=== PATIENT | female | born 2000 | race Caucasian/White ===

== ENCOUNTER 2025-01-11 14:55 | Emergency (ER) | payer BC, SELFPAY ==
[2025-01-11 14:57] VITALS: BP 139/76; PULSE 78; RESP 16; TEMP 36.4; O2SAT 99; BMI 36.0
--- OUTSIDE RECORDS SUMMARY | 2025-01-11 14:57 | XMS_ITS | Clinical Summary ---
Author Organization [facility] Address [address] , [address] [place] [address] Phone Care Team Providers Care Whiskey Regauger Name Role Phone Chantal Chatterjee PsyD Unavailable [phone] Conditions or Problems Problem Name Problem Code Onset Date Status Entry Date Provider Comment Standard Description Annotate Depression with anxiety 264929436 (SNOMED CT) Active Chantal Chatterjee PsyD Mixed anxiety and depressive disorder Confusion 95958042 (SNOMED CT) Active Chong Henning MD Clouded consciousness Memory loss 34065625 (SNOMED CT) Active Chong Henning MD Amnesia Medications Medication Instructions Start Date Stop Date Generic Name [facility] Provider RISPERDAL CONSTA 25 MG SRER risperidone microspheres [id number] Chong Henning MD RISPERIDONE 4 MG TABS TAKE 1 TABLET BY MOUTH EVERY DAY risperidone [id number] Chong Henning MD RISPERIDONE 2 MG TABS risperidone [id number] Chong Henning MD Medications Administered No information available. Allergies, Adverse Reactions, Alerts Allergy Name Reaction Description Start Date Severity Statu s Provider NO KNOWN DRUG ALLERGIES Mild Activ e Chong Henning MD Results Date Name Value Unit Range Flag Description Office Visit: Office Visit m ail SMOK STATUS former smoker Tobacco smoking status MEDS REVIEW Done Documenta tion of current medications (procedure) Internal Other: Verbal Autho rization/Emergency Contact - OBS VERBAL_EMER DONE Verbal authorization and emergency contact Internal Other: Authorizatio n - OBS [id number] Yes GE use only - for LinkLogic import when terms are not otherwise specified HIECONSENT Yes Consent To Release information to the Health Information Exchange (HIE) Lab Report: T4, FREE, TSH, V ITAMIN B12 B-12 457 pg/mL 200-1100 N Cobalamin (V itamin B12) [Mass/volume] in Serum or Plasma TSH 1.13 u[iU]/mL N Thyrotropin [Units/volume] in Serum or Plasma FRT4 1.2 0.8-1.8 N FREE T4 Plan of Care Type Date Detail Pending order Telemedicine Fol low up Pending order Telemedicine Fol low up Pending order MRI-Brain W/O Pending order T4 Free Direct Pending order TSH Pending order Vitamin B12 Pending order Neuropsychology Evaluation Pending order Patient Instruct ions Procedures Code Procedure Name Date Entry Date [id number] MRI-Brain W/O ORDERS Vitamin B12 ORDERS TSH ORDERS T4 Free Direct CPT-74909 MRI Brain W/O CPT-40924 Npsy Interview w/Provider - 1st hour 2021 CPT-02294 Npsy Interp/Rpt by Provider - 1st hour 23/12/07 CPT-35922 Npsy Interp/Rpt by Provider - 4 hours 12/03/07 CPT-49415 Npsy Test by Tech (2+ Tests) - 1st 30 min CPT-00008 Npsy Test by Tech (2+ Tests) - 2 hours 23/12/07 ORDERS Neuropsychology Evaluation 2 [facility]-[id number] Documentation of current medicatio ns ORDERS Patient Instructions Vital Signs No information available. Immunizations No information available. Advance Directives No information available.
--- OUTSIDE RECORDS SUMMARY | 2025-01-11 14:57 | XMS_ITS | Continuity of Care Document ---
Author Organization [facility] Address [address] [place] [address] Phone Care Team Providers Care Pathology Laboratory Aide Name Role Phone Laurent Mtz PA-C Unavailable Unavailable Allergies, Adverse Reactions, Alerts Substance Reaction Status Criticality No Known Allergies Active No Inform ation Medications Medication Instructions Dosage Effective Dates (start - stop) Status Comments olanzapine 10 mg tablet take 1 tablet by oral route every day 10 MG - Active sertraline 50 mg tablet take 1 tablet by oral route every day 50 MG - Active haloperidol 10 mg tablet take 1 tablet by oral route 2 times every day 10 MG - Active ibuprofen 600 mg tablet take 1 tablet by oral route 3 times every day with food 600 MG - Active Procedures Procedure Date OFFICE/OUTPATIENT VISIT EST OFFICE/OUTPATIENT VISIT EST Pneumati walking boot prefab OFFICE/OUTPATIENT VISIT NEW Advance Directives Directive Yes / No Effective Date File Name No Information Encounters Encounter Description Practice Location Reason(s) For Visit Diagnoses Date Provider Providers Copied on Encounter [facility] , [address], [place], [place], [id number], [place] tel:[phone] [facility] No Information Smith Mancilla. [address], [place], [place], [id number] , [place]. tel:[phone] OFFICE/OUTPA TIENT VISIT EST [facility] , [address], [place], [place], [id number], tel:[phone] [facility] Nondisplaced fracture of lateral malleolus of left fibula, subsequent encounter for closed fracture with routine healing 4 Smith Mancilla. [address], [place], [place], [id number] , [place]. tel: [phone] Referring Provider: Jesus Gonzalez III, [facility] [place], [address]. tel:[phone] OFFICE/OUTPA TIENT VISIT EST [facility] , [address], [place], [place], [id number], tel:[phone] [facility] Nondisplaced fracture of lateral malleolus of left fibula, subsequent encounter for closed fracture with routine healingOverweightB noble mass index [BMI] 36.0-36.9, adult 4 Smith Mancilla. [address], [place], [place], [id number] , [place]. tel: [phone] Referring Provider: Jesus Gonzalez III, [facility] [place], [address]. tel:[phone] OFFICE/OUTPA TIENT VISIT [facility] , [address], [place], [place], [address], tel:[phone] [facility] Closed nondisplaced fracture of lateral malleolus of left fibula, initial encounter 3 Smith Mancilla. [address], [place], [place], [id number] , [place]. tel: [phone] Family History Family Member Type Diagnosis Age At Onset No Information Payers Payer name Insurance type Covered constitution party ID January baig(s) [facility] CI [id number] Social History Type Description Quantity Date Captured Comments Alcohol Use Details Unknown Caffeine Use Details Unknown Tobacco Use Status No Information Smoking Status No Information Sex Female Chief Complaint And Reason For Visit No Information Plan Of Treatment Date Type Action Status Referral Ordered: ANKLE L/R 3/4 VWS LT ankle ordered History Of Present Illness Encounter Date Complaint History Of Prese nt Illness No Information Instructions Date Instruction Additional Infor mation No Information Assessments Type Assessment Date No Information
--- OUTSIDE RECORDS SUMMARY | 2025-01-11 14:57 | XMS_ITS | Clinical Summary ---
Author Organization [facility] Address [address] [place] [address] Care Team Providers Care [place] Name Role Phone Pcp, No Primary Care Provider Unavailabl e Allergies No known active allergies Medications hydrocortisone 2.5 % creamIndication s:Dermatitis Apply topically to affected area(s) two times daily. 30 g 5 Active white petrolatum-mine ral oiL (DERMACERIN) creamIndication s:Dermatitis,Dr jimmy skin Apply topically to affected area(s) once daily if needed for Dry Skin. 107 g 5 Active Active Problems Problem Noted Date Diagnosed Date Dermatitis 12/29/2024 Psychosis 09/11/2021 Obesity, unspecified 05/30/2008 Encounters Date Type Department Care Team Description 01/01/2025 Telephone [facility] [address] [place] [address] Rashid Henderson MD Results 12/29/2024 8:20 AM CIRCUS LABORER Office Visit [facility] [address] [place] [address] Rashid Henderson MD Throat Problem (sore throat- going on a bout 3 weeks ); Nose Problem 12/29/2024 Telephone [facility] [address] [place] [address] Rashid Henderson MD Results 12/29/2024 Travel 11/24/2024 3:20 PM CIRCUS LABORER Office Visit [facility] [address] [address] Radha Matute PA Abdominal Pain 11/24/2024 Travel from Last 3 Months Immunizations Immunization Administration Dates Next Due COVID-19 vaccine (3 Four 5 Group-Bio NTech 30mcg/0.3mL) PF, MDV 10/29/2021 DTaP 06/25/2003, 9,1998,06/27,1998 HIB-HepB (Comvax) 02/21/1999,1998,04/15/19 98 HPV 9 (Gardasil 9) 07/29/2018,09/29/2017, 017 Hepatitis A (Peds) 12/25/2009,05/30/2008 Inactivated Polio Vaccine 06/25/2003,1998, 1998 Influenza, IIV4 10/29/2021,,07/29/2018,07/22 MENINGOCOCCAL VACCINE 2 VIAL 2MO-55YO (MENVEO) 07/22/2017 MMR 06/25/2003,02/21/1999 Oral Polio Vaccine 02/21/1999 Tdap 12/25/2009 Varicella Vaccine 05/30/2008,02/21/1999 Family History Medical History Relation Name Comments Diabetes Maternal Grandmother Good Health Mother Asthma No Family History Cancer-breast No Family History Cancer-colon No Family History Heart Disease No Family History Hyperlipidemia No Family History Relation Name Status Comments Maternal Grandmother Mother Social History Tobacco Use Types Packs/Day Years Used Date Smoking Tobacco: Never Smokeless Tobacco: Never Tobacco Cessation:Counseling Given: Yes Alcohol Use Standard Drinks/Week Comments Not Currently 0 (1 standard drink = 0.6 oz pur e alcohol) PHQ-2 Answer Date Recorded PHQ-2 TOTAL SCORE 0 09/11/2021 Social Connections Answer Date Recorded Do you often feel lonely or isolated from those around you? 0 12/29/2024 Financial Resource Strain Answer Date R ecorded Difficulty of Paying Living Expenses 2 12/29/2024 Difficulty of Paying Living Expenses 1 12/29/2024 Food Insecurity Answer Date Recorded Do you worry your food will run out before you are able to buy more? 2 12/29/2024 Transportation Needs Answer Date Record ed Does lack of transportation keep you from medica l appointments? 2 12/29/2024 Does lack of transportation keep you from work, meetings or getting things that you need? 1 12/29/2024 Housing Stability Answer Date Recorded What is your housing situation today? 1 12/29/2024 Utilities Answer Date Recorded Do you have trouble paying f or utilities (for example, heat, electricity, water, phone)? 2 12/29/2024 Comments No Sex and Gender Information Value Date Recorded Sex Assigned at Not on file Legal Sex Female 5:46 AM CIRCUS LABORER Gender Identity Not on file Sexual Orientation Not on file Occupation Industry Job Start Date Job End Date Student Not on file Not on file Not on file [employer] Not on file Not on file Not on file Obstetrics History Para Term AB IAB SAB Ectopic Multiple Livin g Live Births 0 0 0 0 0 0 0 0 0 0 0 Last Filed Vital Signs Vital Sign Reading Time Taken Comments Blood Pressure 135/84 12/29/2024 8:13 AM CIRCUS LABORER Pulse 96 12/29/2024 8:13 AM CIRCUS LABORER Temperature 36.5 C (97.7 F) 11/24/2024 3:33 PM CIRCUS LABORER Respiratory Rate - - Oxygen Saturation 96% 12/29/2024 8:13 AM CIRCUS LABORER Inhaled Oxygen Concentration - - Weight 95.3 kg (210 lb) 12/29/2024 8:13 AM CIRCUS LABORER Height 158.8 cm (5' 2.5) 09/11/2021 2:18 PM CIRCUS LABORER Body Mass Index 37.8 09/11/2021 2:18 PM CIRCUS LABORER Plan of Treatment Health Maintenance Due Date Last Done Comments HIV for age 15-65 2013 Hepatitis C screening for age 18-79 02/13/2016 Tetanus booster 12/25/2019 12/25/2009 BMI (ht and wt on same day) for age 18+ 09/11/2022 09/11/2021, 07/29/2018, 11/24/2017, Additional history exists Depression screening for age 12+ 09/11/2022 09/11/2021, 08/01/2018, 07/29/2018, Additional history exists COVID-19 vaccine series ( season) 2024 10/29/2021 Influenza Vaccine (#1) 2024 , 09/11/2021, 07/29/2018, Additional history exists Pap test for age 21-65 09/11/2024 09/11/2021 Tdap Completed 12/25/2009 HPV series for age 9-26 Completed 07/29/20 18, 09/29/2017, 07/22/2017 Pneumococcal series for age 6-49 Aged Out No longer eligible based on patient's age to complete this topic Procedures Procedure Name Priority Date/Time Associated Diagnosis Comments INFLUENZA A/B PCR Routine 12/29/2024 9:0 1 AM CIRCUS LABORER Sore throat COVID-19 MOLECULAR Routine 12/29/2024 9: 01 AM CIRCUS LABORER Sore throat THROAT RAPID STREP ONLY CLINIC Routine 12/29/2024 9:00 AM CIRCUS LABORER Sore throat HOOP COILER THIN PREP PAP SCREEN IMAGED Routine 09/11/2021 3:10 PM CIRCUS LABORER Cervical cancer screening from Last 3 Months or Most Recently Relevant to Health Maintenance Results * COVID-19 MOLECULAR (12/29/2024 9:01 AM CIRCUS LABORER) COVID 19 [facility] MOLECULAR Negative Negative 12/29/2024 6:55 PM CIRCUS LABORER [facility] LAB[facility]-CE NTRAL LABORATORY TESTING LABORATORY [facility] 12/29/2024 6:55 PM CIRCUS LABORER [facility] N[facility]AL LABORATORY Comment:Specimen submitted t o [facility] for testing. Other SPECIMEN FROM NASAL FOSSAE / Unknown Non-Blood / Unknown 12/29/2024 9:01 AM CIRCUS LABORER 12/29/2024 9:01 AM CIRCUS LABORER Narrative [facility] - 12/29/2024 6:55 PM CIRCUS LABORER All PCR tests are subject to false negative result due to variability in viral load and collection technique. A negative result does not rule out a SARS-CoV-2 infection. Clinical correlation required. Rashid Henderson MD MICROBIOLOGY Final Result [facility]CENTRAL LABORATORY [address] [place] [address], * INFLUENZA A/B PCR (12/29/2024 9:01 AM CIRCUS LABORER) [facility] INFLUENZA A PCR Negative 12/29/2024 6:55 PM CIRCUS LABORER [facility] TRAL LABORATORY INFLUENZA B PCR Negative 12/29/2024 6:55 PM CIRCUS LABORER [facility] TRAL LABORATORY Other SPECIMEN FROM NASAL FOSSAE / Unknown Non-Blood / Unknown 12/29/2024 9:01 AM CIRCUS LABORER 12/29/2024 9:01 AM CIRCUS LABORER Rashid Henderson MD MICROBIOLOGY Final Result [facility] [address] [place] [address], [place] * THROAT RAPID STREP ONLY CLINIC (12/29/2024 9:00 AM CIRCUS LABORER) [facility] POC, GROUP A STREP NOT DETECTED NOT DETECTED [facility] Comment: The [place] [employer] recommends that a throat culture be performed if a rapid group A streptococcus assay yields a negative result. [employer] recommends Streptococcus, Group A culture. Throat SPECIMEN FROM THROAT / Unknown 12/29/2024 9:00 AM CIRCUS LABORER 12/29/2024 9:00 AM CIRCUS LABORER Rashid Henderson MD MICROBIOLOGY Final Result Performing Organization Address City/[facility]/ZIP Co de Phone Number [facility] [address] [place] [address], [facility] [address] [place] [address] * HOOP COILER THIN PREP PAP SCREEN IMAGED (09/11/2021 3:10 PM CIRCUS LABORER) [facility] Case Report Gynecologic Cytology Report Case: [id number] Authorizing Provider: Marlene Lr DO Collected: 09/11/2021 1510 Ordering Location: [facility] Received: 09/11/2021 1548 Clinic First Screen: Niya Rocha Specimen: HOOP COILER ThinPrep Vial Screening, Cervical 09/26/2021 6:08 PM CIRCUS LABORER [facility] ENTRAL LABORATORY INTERPRETATION/ RESULT NEGATIVE FOR INTRAEPITHELIAL LESION OR MALIGNANCY (NIL) (none) 09/26/2021 6:08 PM CIRCUS LABORER [facility] ENTRAL LABORATORY IMEN ADEQUACY Satisfactory for evaluation Endocervical component present 09/26/2021 6:08 PM CIRCUS LABORER [facility] ENTRAL LABORATORY HPV REQUEST HPV if ASCUS 09/26/2021 6:08 PM CIRCUS LABORER [facility] ENTRAL LABORATORY Date of LMP 09/02/2021 09/26/2021 6:08 PM CIRCUS LABORER [facility] ENTRAL LABORATORY Last Pap Date unknown 09/26/2021 6:08 PM CIRCUS LABORER [facility] ENTRAL LABORATORY Last Pap Result NIL 6:08 PM CIRCUS LABORER [facility] ENTRAL LABORATORY Abnormal Pap or [place] Bx in last 5 years No 09/26/2021 6:08 PM CIRCUS LABORER [facility] ENTRAL LABORATORY Menstrual Status Regular Periods 09/26/2021 6:08 PM CIRCUS LABORER [facility] ENTRAL LABORATORY [place] Bx Done Today No 09/26/2021 6:08 PM CIRCUS LABORER [facility] ENTRAL LABORATORY Additional Information None given 09/26/2021 6:08 PM CIRCUS LABORER [facility] ENTRAL LABORATORY Comment: Cytology is screened at [facility], Central Laboratory - [address], [place] [address] and [facility] - [address], [place] [address] and [facility] - [address] [place] [address] Interpreted at [facility], Central Laboratory - [address], [place] [address] Automated Review Successful 09/26/2021 6:08 PM CIRCUS LABORER [facility] ENTRAL LABORATORY Comment:Specimen processed s uccessfully by automated construction analyst device, ThinPrep Imaging System, [employer] Note The pap test is a screening technique, not a diagnostic procedure. It is used primarily to screen for squamous cancers and precursor lesions. Published studies have shown that it is subject to both false negative and false positive results. The pap test should not be used as the sole means to diagnose or exclude pre-malignant and malignant lesions. 09/26/2021 6:08 PM CIRCUS LABORER [facility] ENTRAL LABORATORY Other (Cervical) Non-Blood / Unknown 09/11/2021 3:10 PM CIRCUS LABORER 09/11/2021 3:48 PM CIRCUS LABORER us Marlene Lr DO PATHOLOGY/CYTOLOGY Final R esult [facility] [address] [place] [address], [place] from Last 3 Months or Most Recently Relevant to Health Maintenance Insurance [facility] [employer] Care Teams [place] Relationship Specialty Start Date End Date Pcp, No . PCP - General 07/21/21
[2025-01-11 15:29] LABS: Ur HCG Qualitative* Negative (Negative)
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
--- OUTSIDE RECORDS SUMMARY | 2025-01-11 16:27 | XMS_ITS | Clinical Summary ---
Author Organization [facility] Address [address] [place] [address] Care Team Providers Care Advertising Account Manager Name Role Phone Pcp, No Primary Care [...] Type Department Care Team Description 01/01/2025 Telephone [facility] [address] [place] [address] Rashid Henderson MD Results 12/29/2024 8:20 AM DIFFERENTIAL TESTER Office Visit [facility] [address] [place] [address] Rashid Henderson MD Throat Problem (sore throat- going on a bout 3 weeks ); Nose Problem 12/29/2024 Telephone [facility] [address] [place] [address] Rashid Henderson MD Results 12/29/2024 Travel 11/24/2024 3:20 PM DIFFERENTIAL TESTER Office Visit [facility] [address] [address] Radha Matute PA Abdominal Pain 11/24/2024 Travel from Last 3 Months Immunizations Immunization Administration Dates Next Due COVID-19 vaccine ([employer] 30mcg/0.3mL) PF, MDV 10/29/2021 DTaP 06/25/2003, [...] on file Legal Sex Female 5:46 AM DIFFERENTIAL TESTER Gender Identity Not on file Sexual Orientation [...] Comments Blood Pressure 135/84 12/29/2024 8:13 AM DIFFERENTIAL TESTER Pulse 96 12/29/2024 8:13 AM DIFFERENTIAL TESTER Temperature 36.5 C (97.7 F) 11/24/2024 3:33 PM DIFFERENTIAL TESTER Respiratory Rate - - Oxygen Saturation 96% 12/29/2024 8:13 AM DIFFERENTIAL TESTER Inhaled Oxygen Concentration - - Weight 95.3 kg (210 lb) 12/29/2024 8:13 AM DIFFERENTIAL TESTER Height 158.8 cm (5' 2.5) 09/11/2021 2:18 PM DIFFERENTIAL TESTER Body Mass Index 37.8 09/11/2021 2:18 PM DIFFERENTIAL TESTER Plan of Treatment Health Maintenance Due Date [...] A/B PCR Routine 12/29/2024 9:0 1 AM DIFFERENTIAL TESTER Sore throat COVID-19 MOLECULAR Routine 12/29/2024 9: 01 AM DIFFERENTIAL TESTER Sore throat THROAT RAPID STREP ONLY CLINIC Routine 12/29/2024 9:00 AM DIFFERENTIAL TESTER Sore throat FISH HEADER THIN PREP PAP SCREEN IMAGED Routine 09/11/2021 3:10 PM DIFFERENTIAL TESTER Cervical cancer screening from Last 3 Months or Most Recently Relevant to Health Maintenance Results * COVID-19 MOLECULAR (12/29/2024 9:01 AM DIFFERENTIAL TESTER) COVID 19 [facility]LE[facility] Negative Negative 12/29/2024 6:55 PM DIFFERENTIAL TESTER [facility] [employer] [facility]-CE NTRAL LABORATORY TESTING LABORATORY [facility] 12/29/2024 6:55 PM DIFFERENTIAL TESTER [facility]OR[facility]- NTRAL LABORATORY Comment:Specimen submitted t o [facility] for testing. Other SPECIMEN FROM NASAL FOSSAE / Unknown Non-Blood / Unknown 12/29/2024 9:01 AM DIFFERENTIAL TESTER 12/29/2024 9:01 AM DIFFERENTIAL TESTER Narrative [facility]-CENTRAL LABORATORY - 12/29/2024 6:55 PM DIFFERENTIAL TESTER All PCR tests are subject to false negative result due to variability in viral load and collection technique. A negative result does not rule out a SARS-CoV-2 infection. Clinical correlation required. Rashid Henderson MD MICROBIOLOGY Final Result [facility]TR[facility] [address] [place] [address], * INFLUENZA A/B PCR (12/29/2024 9:01 AM DIFFERENTIAL TESTER) [facility] INFLUENZA A PCR Negative 12/29/2024 6:55 PM DIFFERENTIAL TESTER [facility] TRAL LABORATORY INFLUENZA B PCR Negative 12/29/2024 6:55 PM DIFFERENTIAL TESTER [facility] TRAL LABORATORY Other SPECIMEN FROM NASAL FOSSAE / Unknown Non-Blood / Unknown 12/29/2024 9:01 AM DIFFERENTIAL TESTER 12/29/2024 9:01 AM DIFFERENTIAL TESTER Rashid Henderson MD MICROBIOLOGY Final Result [facility] [address] [place] [address], [place] * THROAT RAPID STREP ONLY CLINIC (12/29/2024 9:00 AM DIFFERENTIAL TESTER) [facility] POC, GROUP A STREP NOT DETECTED NOT DETECTED [facility] Comment: The [place] [employer] recommends that a throat culture be performed if a rapid group A streptococcus assay yields a negative result. [employer] recommends Streptococcus, Group A culture. Throat SPECIMEN FROM THROAT / Unknown 12/29/2024 9:00 AM DIFFERENTIAL TESTER 12/29/2024 9:00 AM DIFFERENTIAL TESTER Rashid Henderson MD MICROBIOLOGY Final Result Performing Organization Address City/[facility]/ZIP Co de Phone Number [facility] [address] [place] [address], [facility] [address] [place] [address] * FISH HEADER THIN PREP PAP SCREEN IMAGED (09/11/2021 3:10 PM DIFFERENTIAL TESTER) [facility] Case Report Gynecologic Cytology Report Case: [id number] Authorizing Provider: Marlene Lr DO Collected: 09/11/2021 1510 Ordering Location: [facility] Received: 09/11/2021 1548 Clinic First Screen: Niya Rocha Specimen: FISH HEADER ThinPrep Vial Screening, Cervical 09/26/2021 6:08 PM DIFFERENTIAL TESTER [facility] [employer] [facility] ENTRAL LABORATORY INTERPRETATION/ RESULT NEGATIVE FOR INTRAEPITHELIAL LESION OR MALIGNANCY (NIL) (none) 09/26/2021 6:08 PM DIFFERENTIAL TESTER [facility] ENTRAL LABORATORY IMEN ADEQUACY Satisfactory for evaluation Endocervical component present 09/26/2021 6:08 PM DIFFERENTIAL TESTER [facility] ENTRAL LABORATORY HPV REQUEST HPV if ASCUS 09/26/2021 6:08 PM DIFFERENTIAL TESTER [facility] [employer] [facility] ENTRAL LABORATORY Date of LMP 09/02/2021 09/26/2021 6:08 PM DIFFERENTIAL TESTER [facility] [employer] [facility] ENTRAL LABORATORY Last Pap Date unknown 09/26/2021 6:08 PM DIFFERENTIAL TESTER [facility] ENTRAL LABORATORY Last Pap Result NIL 6:08 PM DIFFERENTIAL TESTER [facility] [employer] [facility] ENTRAL LABORATORY Abnormal Pap or Hull Bx in last 5 years No 09/26/2021 6:08 PM DIFFERENTIAL TESTER [facility] ENTRAL LABORATORY Menstrual Status Regular Periods 09/26/2021 6:08 PM DIFFERENTIAL TESTER [facility] ENTRAL LABORATORY Hull Bx Done Today No 09/26/2021 6:08 PM DIFFERENTIAL TESTER [facility] ENTRAL LABORATORY Additional Information None given 09/26/2021 6:08 PM DIFFERENTIAL TESTER [facility] ENTRAL LABORATORY Comment: Cytology is screened at [facility], Central Laboratory - [address], [place] [address] and [facility] - [address], [place] [address] and [facility] - [address] [place] [address] Interpreted at [facility], Central Laboratory - [address], [place] [address] Automated Review Successful 09/26/2021 6:08 PM DIFFERENTIAL TESTER [facility] ENTRAL LABORATORY Comment:Specimen processed s uccessfully by automated compugraph operator device, ThinPrep Imaging System, [employer] Note The pap test is a screening technique, not a diagnostic procedure. It is used primarily to screen for squamous cancers and precursor lesions. Published studies have shown that it is subject to both false negative and false positive results. The pap test should not be used as the sole means to diagnose or exclude pre-malignant and malignant lesions. 09/26/2021 6:08 PM DIFFERENTIAL TESTER [facility] LABORAT[facility]-C ENTRAL LABORATORY Other (Cervical) Non-Blood / Unknown 09/11/2021 3:10 PM DIFFERENTIAL TESTER 09/11/2021 3:48 PM DIFFERENTIAL TESTER us Marlene Lr DO PATHOLOGY/CYTOLOGY Final R esult [facility] LABORAT[facility]-CENTRAL LABORATORY [address] [place] [address], [place] from Last 3 Months or Most Recently Relevant to Health Maintenance Insurance [facility] [employer] Care Teams Advertising Account Manager Relationship Specialty Start Date End Date Pcp, No . PCP - General 07/21/21
--- OUTSIDE RECORDS SUMMARY | 2025-01-11 16:27 | XMS_ITS | Clinical Summary ---
Author Organization [facility] Address [address] , [address] [place] [address] Phone Care Team Providers Care Toe Trimmer Name Role Phone Chantal Chatterjee PsyD Unavailable [phone] Conditions or Problems Problem Name Problem Code Onset Date Status Entry Date Provider Comment Standard Description Annotate Depression with anxiety 622078506 (SNOMED CT) Active Chantal Chatterjee PsyD Mixed anxiety and depressive disorder Confusion 77505840 (SNOMED CT) Active Chong Henning MD Clouded consciousness Memory loss 84979798 (SNOMED CT) Active Chong Henning MD Amnesia Medications Medication Instructions Start Date Stop Date Generic Name [facility] Provider RISPERDAL CONSTA 25 MG SRER risperidone microspheres [id number] Chong Henning MD RISPERIDONE 4 MG TABS TAKE 1 TABLET BY MOUTH EVERY DAY risperidone [id number] Chong Henning MD RISPERIDONE 2 MG TABS risperidone [id number] Chong Henning MD Medications Administered No information [...] Procedures Code Procedure Name Date Entry Date [id number] MRI-Brain W/O ORDERS Vitamin B12 ORDERS TSH ORDERS T4 Free Direct CPT-54399 MRI Brain W/O CPT-27167 Npsy Interview w/Provider - 1st hour 2021 CPT-77782 Npsy Interp/Rpt by Provider - 1st hour 23/12/07 CPT-83014 Npsy Interp/Rpt by Provider - 4 hours 12/03/07 CPT-59349 Npsy Test by Tech (2+ Tests) - 1st 30 min CPT-38472 Npsy Test by Tech (2+ Tests) - 2 hours 23/12/07 ORDERS Neuropsychology Evaluation 2 [id number] Documentation of current medicatio ns ORDERS Patient Instructions Vital Signs No information available. Immunizations No information available. Advance Directives No information available.
--- OUTSIDE RECORDS SUMMARY | 2025-01-11 16:27 | XMS_ITS | Continuity of Care Document ---
Author Organization [facility] Address [address] [place] [address] Phone Care Team Providers Care Technical Translator Name Role Phone Laurent Mtz PA-C Unavailable [...] Diagnoses Date Provider Providers Copied on Encounter [facility] , [address], [place], [place], [id number], [place] tel:[phone] [facility] No Information Smith Mancilla. [address], [place], [place], [address] , [place]. tel:[phone] OFFICE/OUTPA TIENT VISIT EST [facility] , [address], [place], [place], [address], tel:[phone] [facility] Nondisplaced fracture of lateral malleolus of left fibula, subsequent encounter for closed fracture with routine healing 4 Smith Mancilla. [address], [place], [place], [address] , [place]. tel: [phone] Referring Provider: Jesus Gonzalez III, [facility] [place], [address]. tel:[phone] OFFICE/OUTPA TIENT VISIT EST [facility] , [address], [place], [place], [address], tel:[phone] [facility] Nondisplaced fracture of lateral malleolus of left fibula, subsequent encounter for closed fracture with routine healingOverweightB noble mass index [BMI] 36.0-36.9, adult 4 Smith Mancilla. [address], [place], [place], [id number] , [place]. tel: [phone] Referring Provider: Jesus Gonzalez III, [facility] [place], [address]. tel:[phone] OFFICE/OUTPA TIENT VISIT [facility] , [address], [place], [place], [address], tel:[phone] [facility] Closed nondisplaced fracture of lateral malleolus of left fibula, initial encounter 3 Smith Mancilla. [address], [place], [place], [address] , [place]. tel: [phone] Family History Family Member Type Diagnosis Age At Onset No Information Payers Payer name Insurance type Covered libertarian ID January baig(s) [facility] CI [id number] Social History Type Description Quantity Date Captured [...]
--- NOTE | 2025-01-11 16:35 | CRLHL7_ITS ---
For Patients: As a result of the Century Cures Act, medical imaging exams and procedure reports are released immediately into your electronic medical record. You may view this report before your referring provider. If you have questions, please contact your health care provider. INDICATION: pelvic pain COMPARISON: None TECHNIQUE: Reyes-scale and color Doppler ultrasound of the uterus and ovaries from a transabdominal and transvaginal approach. Transvaginal ultrasound of the pelvis was performed to better visualize the genitourinary organs, such as the ovaries and/or endometrium. Color-flow and spectral Doppler imaging of both ovaries is performed. FINDINGS: The uterus measures 8.0 x 3.8 x 4.7 cm and demonstrates normal echogenicity. No uterine masses. The endometrial stripe measures 0.8 cm in double thickness. No endometrial masses. The cervix is normal. The right ovary measures 3.2 x 2.0 x 2.2 cm. Physiologic appearance without a dominant cystic lesion or solid ovarian / adnexal mass. There is normal arterial and venous color Doppler flow and normal arterial and venous waveforms on duplex Doppler. The left ovary measures 2.5 x 2.2 x 2.2 cm. Physiologic appearance without a dominant cystic lesion or solid ovarian / adnexal mass. There is normal arterial and venous color Doppler flow and normal arterial and venous waveforms on duplex Doppler. No free fluid. IMPRESSION: Unremarkable pelvic ultrasound. Dictated by Ede Clancy MD @ 01/11/2025 6:17:33 PM (Electronically Signed)
[2025-01-11] MEDS: ACETAMINOPHEN 500 MG TABLET 1000 MG PO (16:53)
[2025-01-11 18:51] VITALS: BP 129/78; PULSE 70; RESP 16; TEMP 36.4; O2SAT 99
[2025-01-11 18:52] VITALS: BP 129/78; PULSE 70; RESP 16; TEMP 36.4
== END 2025-01-11 18:52 | disposition home or self-care (01) ==
PROVIDERS: Emergency Provider Student in an Organized Health Care Education/Training Program
DX: R10.2 Pelvic and perineal pain (principal)
CPT/HCPCS: 76830; 76856; 81025; 93976; 99284; A9270